=== PATIENT | male | born 1965 | race Caucasian/White ===

== ENCOUNTER 2016-06-05 15:18 | Emergency (ER) | payer OTHER ==
[~2016-06-05 15:18] MED LIST: ASPI325T PO; METO25 PO; WELL150T PO
[2016-06-05 16:12] VITALS: BP 176/87; PULSE 126; RESP 20
--- NOTE | 2016-06-05 16:22 | PD ---
HPI Chief Complaint: Psychiatric Symptoms Time Seen by Provider: 16:16 Travel History International Travel<30 days: No Contact w/Intl Traveler<30days: No History of Present Illness HPI Patient is a 50-year-old male with history of HCV, A. fib, TIA and alcohol abuse brought in by police on a act for alcohol intoxication. Per the report he was wandering the streets and appeared intoxicated. A person he admitted to drinking large quantities of alcohol today. The patient is currently in the psychiatric unit and is pleasant and very talkative and admits to drinking large amounts of alcohol today which is usual. He takes a daily full-strength aspirin but is not taking any other medications. He does not have a PCP but knows he is supposed to take certain medications for "my heart". He denies any chest pain, shortness of breath, dizziness was as he does occasionally have palpitations, last episode was 4-5 days prior. He denies any toxic ingestions, illicit drug use. He endorses tobacco use. He has no medical complaints at this time. PFSH Past Medical History Atrial Fibrillation: Yes Chest Pain: Yes (AFIB) Diminished Hearing: No Hepatitis: Yes (C+) Hypertension: Yes Immunizations Current: No Past Surgical History Cholecystectomy: Yes Tonsillectomy: Yes Other Surgery: Yes (right ear cyst removed) Social History Alcohol Use: Yes (BING[employer] DRINKER) Tobacco Use: Yes (1PPD) Substance Use: No Allergies-Medications (Allergen,Severity, Reaction): Coded Allergies: No Known Allergies (Verified , 10/29/14) Reported Meds & Prescriptions Reported Meds & Active Scripts Active Wellbutrin Sr (Bupropion HCl) 150 Mg Tab 150 Mg PO Q12H 150 mg qd for days 1-3 then 150 mg bid Metoprolol Tartrate 25 mg (Metoprolol Tartrate) 25 Mg Tab 12.5 Mg PO BID Reported Aspirin 325 mg (Aspirin) 325 Mg Tab 325 Mg PO DAILY Review of Systems ROS Limitations: Intoxication General / Constitutional: No: Fever HENT: No: Headaches Cardiovascular: Positive: Palpitations (4-5 days prior), No: Chest Pain or Discomfort, Tachycardia Respiratory: No: Shortness of Breath Gastrointestinal: No: Abdominal Pain Neurologic: No: Syncope, Focal Abnormalities Physical Exam Narrative GENERAL: Well-developed and well-nourished adult male in no acute distress. Smells of ethanol and is clearly intoxicated. SKIN: Warm and dry. Good turgor without tenting. HEAD: Normocephalic and atraumatic. EYES: PERRL bilaterally, 5mm. EOMI bilaterally. No injection or icterus present. No proptosis. Lids without edema or erythema. ENT: Buccal mucosa pink and moist. Oropharynx free of erythema, tonsillar hypertrophy, masses, swelling, asymmetry and exudates. Uvula midline and airway patent. NECK: Supple, no meningeal signs. Trachea midline, no JVD. No cervical or facial lymphadenopathy. CARDIOVASCULAR: Tachycardic, approximately 110 bpm with irregular irregular rhythm without murmurs, rubs, clicks or gallops. Radial and posterior tibial pulses 2+ bilaterally. No pedal edema. Negative bilateral Homans sign. RESPIRATORY: Clear to auscultation bilaterally with symmetrical rise and fall, no distress or use of accessory muscles. GASTROINTESTINAL: Non-tender, non-distended. Normal bowel sounds all 4 quadrants. No masses or organomegaly present. MUSCULOSKELETAL: Patient freely moving all four extremities spontaneously. Extremities without clubbing, cyanosis, or edema. No obvious deformities. NEUROLOGIC: CN II-XII grossly intact. Awake and alert. Motor grossly within normal limits. Normal speech. PSYCHIATRIC: Appropriate mood and affect. Data Data Last Documented VS Vital Signs Date Time Temp Pulse Resp B/P Pulse Ox O2 Delivery O2 Flow Rate FiO2 06/05/16 18:39 107 16 106/54 96 Orders Complete Blood Count With Diff (06/05/16 16:15) Comprehensive Metabolic Panel (06/05/16 16:15) Drug Screen, Random Urine (06/05/16 16:15) Electrocardiogram (06/05/16 16:15) Alcohol (Ethanol) (06/05/16 16:15) Psych Screen (06/05/16 16:15) Sodium Chlor 0.9% 1000 Ml Inj (Ns 1000 M (06/05/16 17:46) Labs Laboratory Tests Test 06/05/16 16:18 White Blood Count 6.6 TH/MM3 Red Blood Count 4.15 MIL/MM3 Hemoglobin 14.7 GM/DL Hematocrit 42.1 % Mean Corpuscular Volume 101.2 FL Mean Corpuscular Hemoglobin 35.3 PG Mean Corpuscular Hemoglobin 34.9 % Concent Red Cell Distribution Width 13.4 % Platelet Count 235 TH/MM3 Mean Platelet Volume 9.3 FL Neutrophils (%) (Auto) 51.2 % Lymphocytes (%) (Auto) 34.0 % Monocytes (%) (Auto) 12.1 % Eosinophils (%) (Auto) 1.9 % Basophils (%) (Auto) 0.8 % Neutrophils # (Auto) 3.4 TH/MM3 Lymphocytes # (Auto) 2.2 TH/MM3 Monocytes # (Auto) 0.8 TH/MM3 Eosinophils # (Auto) 0.1 TH/MM3 Basophils # (Auto) 0.1 TH/MM3 CBC Comment DIFF FINAL Differential Comment Sodium Level 142 MEQ/L Potassium Level 4.0 MEQ/L Chloride Level 108 MEQ/L Carbon Dioxide Level 26.0 MEQ/L Anion Gap 8 MEQ/L Blood Urea Nitrogen 10 MG/DL Creatinine 1.08 MG/DL Estimat Glomerular Filtration 72 ML/MIN Rate Random Glucose 105 MG/DL Calcium Level 8.4 MG/DL Total Bilirubin 0.3 MG/DL Aspartate Amino Transf 152 U/L (AST/SGOT) Alanine Aminotransferase 171 U/L (ALT/SGPT) Alkaline Phosphatase 79 U/L Total Protein 9.3 GM/DL Albumin 4.1 GM/DL Ethyl Alcohol Level 375 MG/DL MDM Medical Decision Making Medical Screen Exam Complete: Yes Emergency Medical Condition: Yes Interpretation(s) Laboratory Tests Test 06/05/16 16:18 White Blood Count 6.6 TH/MM3 (4.0-11.0) Red Blood Count 4.15 MIL/MM3 (4.50-5.90) Hemoglobin 14.7 GM/DL (13.0-17.0) Hematocrit 42.1 % (39.0-51.0) Mean Corpuscular Volume 101.2 FL (80.0-100.0) Mean Corpuscular Hemoglobin 35.3 PG (27.0-34.0) Mean Corpuscular Hemoglobin 34.9 % Concent (32.0-36.0) Red Cell Distribution Width 13.4 % (11.6-17.2) Platelet Count 235 TH/MM3 (150-450) Mean Platelet Volume 9.3 FL (7.0-11.0) Neutrophils (%) (Auto) 51.2 % (16.0-70.0) Lymphocytes (%) (Auto) 34.0 % (9.0-44.0) Monocytes (%) (Auto) 12.1 % (0.0-8.0) Eosinophils (%) (Auto) 1.9 % (0.0-4.0) Basophils (%) (Auto) 0.8 % (0.0-2.0) Neutrophils # (Auto) 3.4 TH/MM3 (1.8-7.7) Lymphocytes # (Auto) 2.2 TH/MM3 (1.0-4.8) Monocytes # (Auto) 0.8 TH/MM3 (0-0.9) Eosinophils # (Auto) 0.1 TH/MM3 (0-0.4) Basophils # (Auto) 0.1 TH/MM3 (0-0.2) CBC Comment DIFF FINAL Differential Comment Sodium Level 142 MEQ/L (136-145) Potassium Level 4.0 MEQ/L (3.5-5.1) Chloride Level 108 MEQ/L (98-107) Carbon Dioxide Level 26.0 MEQ/L (21.0-32.0) Anion Gap 8 MEQ/L (5-15) Blood Urea Nitrogen 10 MG/DL (7-18) Creatinine 1.08 MG/DL (0.60-1.30) Estimat Glomerular Filtration 72 ML/MIN (>89) Rate Random Glucose 105 MG/DL (74-106) Calcium Level 8.4 MG/DL (8.5-10.1) Total Bilirubin 0.3 MG/DL (0.2-1.0) Aspartate Amino Transf 152 U/L (15-37) (AST/SGOT) Alanine Aminotransferase 171 U/L (12-78) (ALT/SGPT) Alkaline Phosphatase 79 U/L (45-117) Total Protein 9.3 GM/DL (6.4-8.2) Albumin 4.1 GM/DL (3.4-5.0) Ethyl Alcohol Level 375 MG/DL (0-5) Differential Diagnosis Alcohol intoxication versus substance abuse versus toxic ingestion versus metabolic derangement versus A. fib Narrative Course Patient is a 50-year-old male with a history of HCV, A. fib, TIA and ethanol abuse brought by police for after he was walking the streets and appeared intoxicated. The patient smells of ethanol and does appear intoxicated. He is a daily drinker. He has no medical complaints at this time. Slightly Tachycardic with irregular irregular rhythm and he has been off of his medications other than aspirin 325 mg. Exam is otherwise unremarkable. Ordered EKG and labs and 1 L normal saline bolus. EKG shows sinus tachycardia rate of 101. Normal axis, intervals. No ST-T changes. Labs show H&H 14.7/42.1 , RBC 4.15, MCV 101.2. AST 152, AST 171, ALP 79, protein 9.3, calcium 8.4, chloride 108, creatinine 1.08. Ethanol 375. Psychiatric problems unable to initiate fluids due to their protocols. Patient's are about 101 and elevation seemed to be related to agitation and activity when he gets up and walk around while drunk. He is to drink copious amounts of Gatorade rather to help with the tachycardia was likely resolve as he is more calm. Reviewed his labs with Dr. Arreguin who is not concerned for acute hepatitis. He is medically cleared to proceed with psych evaluation. Diagnosis Primary Impression: Acute alcohol intoxication Qualified Code: F10.120 - Acute alcohol intoxication, uncomplicated Additional Impressions: Sinus tachycardia Elevated LFTs Condition: Stable Brian Kirby III Jun 05, 2016 16:22
[2016-06-05 16:38] LABS: AUTOMATED NEUTROPHIL # 3.4 TH/MM3 (1.8-7.7); BASOPHIL # 0.1 TH/MM3 (0-0.2); BASOPHIL % 0.8 % (0.0-2.0); EOSINOPHIL # 0.1 TH/MM3 (0-0.4); EOSINOPHIL % 1.9 % (0.0-4.0); HEMATOCRIT 42.1 % (39.0-51.0); HEMO FLAGS DIFF FINAL; LYMPHOCYTE # 2.2 TH/MM3 (1.0-4.8); MEAN CELL VOLUME 101.2 FL (80.0-100.0); MEAN CORPUSCULAR HEMOGLOBIN 35.3 PG (27.0-34.0); MEAN CORPUSCULAR HGB CONC 34.9 % (32.0-36.0); MONO % 12.1 % (0.0-8.0); NEUT % 51.2 % (16.0-70.0); PLATELET COUNT 235 TH/MM3 (150-450); RED BLOOD COUNT 4.15 MIL/MM3 (4.50-5.90); RED CELL DISTRIBUTION WIDTH 13.4 % (11.6-17.2); WHITE BLOOD COUNT 6.6 TH/MM3 (4.0-11.0)
[2016-06-05 17:08] LABS: ANION GAP 8 MEQ/L (5-15)
[2016-06-05 17:13] LABS: ALKALINE PHOSPHATASE 79 U/L (45-117); ALT (GPT) 171 U/L (12-78); AST (GOT) 152 U/L (15-37); BLOOD UREA NITROGEN 10 MG/DL (7-18); CHLORIDE 108 MEQ/L (98-107); GLOMERULAR FILTRATION RATE 72 ML/MIN (>89); SODIUM (NA) 142 MEQ/L (136-145); TOTAL BILIRUBIN ADULT 0.3 MG/DL (0.2-1.0)
[2016-06-05] MEDS ORDERED: SODIUM CHLOR 0.9% 1000 ML INJ 1,000 ML IV SCH (17:46)
[2016-06-05 18:39] VITALS: BP 106/54; PULSE 107; RESP 16; O2SAT 96
[2016-06-05 20:13] LABS: AMPHETAMINE, URINE NEG (NEG); BARBITURATES, URINE NEG (NEG); COCAINE, URINE NEG (NEG)
[2016-06-05 22:38] VITALS: BP 130/70; PULSE 99; RESP 16; O2SAT 97
[2016-06-06 02:00] VITALS: BP 124/66; PULSE 76; RESP 18; O2SAT 96
[2016-06-06 06:16] VITALS: BP 140/78; PULSE 85; RESP 18
== END 2016-06-06 10:32 | disposition home or self-care (01) ==
LOC: NEPJ 15:18
DX: F10.120 Alcohol abuse with intoxication, uncomplicated (principal); R00.0 Tachycardia, unspecified; R79.89 Other specified abnormal findings of blood chemistry; Y90.8 Blood alcohol level of 240 mg/100 ml or more
CPT/HCPCS: 80053; 80307; 80320; 85025